=== PATIENT | male | born 1950 | race Caucasian/White ===

== ENCOUNTER 2019-04-13 07:32 | Outpatient (CLI) | payer MEDICARE, OTHER, SELFPAY ==
--- NOTE | ~2019-04-13 | US_ITS ---
EXAMINATION: US aorta [facility] scr[facility] DATE: 04/13/2019 08:15 INDICATION: Abdominal aortic aneurysm screening. TECHNIQUE: Grayscale, color Doppler, and pulsed Doppler images of the aorta and common iliac arteries were obtained. COMPARISON: CT abdomen and pelvis 02/18/2015 FINDINGS: The aorta is normal in caliber. The right common iliac artery is normal in caliber. The left common i liac artery is normal in caliber. IMPRESSION: 1. No abdominal aortic aneurysm. Reviewed, dictated and finalized at location A. [facility]
== END 2019-04-13 07:33 | disposition home or self-care (01) ==
LOC: ANHIMG 07:45
PROVIDERS: PCP Family Medicine; Visit Provider Family Medicine
DX: Z13.6 Encounter for screening for cardiovascular disorders (principal)
CPT/HCPCS: 76706

== ENCOUNTER 2021-07-13 01:37 | Day surgery (SDC) | payer MEDICARE, OTHER, SELFPAY ==
[2021-07-05 14:49] VITALS: BMI 25.8
--- NOTE | 2021-07-05 15:01 | PC.NURSE ---
Report to the Outpatient Waiting Room, entrance under the green pavilion located off [facility], at time _1145 AM on date __07/13/21 . OR Time: ___1:45 PM . - You and your visitor will be asked a series of questions to screen for COVID 19 for your protection. - Only one visitor is allowed at this time. - The patient visitor is requested to leave or wait in car when not with patient. - A mask is required within the hospital. Patients may have clear liquids (water, carbonated beverages, clear teas, apple juice) until 3 hours prior to surgery (1045 AM) with a maximum of 20 ounces. - No food from midnight until time of surgery - Infants may have breast milk until 4 hours before surgery, formula 6 hours prior to surgery. - Children will be allowed to drink immediately following surgery. If applicable, please bring a bottle or sippy cup to assist with drinking. Juice, water, soda, and popsicles are readily available. For infants on formula, please bring formula the day of surgery. Pacifiers are allowed. Take the following medications with a SIP of water the morning of surgery: NONE Medications to discontinue per physician NONE Date to take last dose Please no make-up, nail turkish, hairspray, perfume, deodorant, or body powder the day of surgery. No jewelry (including any body piercings) or valuables the day of surgery, leave them at home. Please take a shower or bath the night before, or the morning of, surgery with an antibacterial soap. Wear comfortable, loose fitting clothing. Children are encouraged to wear pajamas. - Jewelry must be removed prior to entering the operating room. Rings and piercings that are not removed may be cut off. - The hospital will not accept responsibility for valuables. - Please leave all valuables, including medications, at home the day of surgery. If you are going home after surgery, a licensed pick up truck driver must drive you home. - NO public transportation without another adult. - We recommend that an adult stay with you for 24 hours following discharge. - We also recommend that you do not drive, make important decision, drink alcoholic beverages, or take any drugs that were not prescribed by your health care provider for at least 24 hours after your discharge time. For Pediatric surgeries, we recommend two adults accompany the child home (only one inside the building at this time). Follow any additional instructions given to you from your surgeon. If you or anyone in your household have experienced Covid symptoms in the past week, please notify your surgeon or the nurse liaison at the phone number below for possible testing. Telephone instructions given to ____PT and asked if any additional questions and then verbalized understanding. Patient advised to call surgeon office or pre surgery nurse liaison [phone] if any additional questions.
[2021-07-13] VITALS (10 sets, daily range): BP systolic 131–157; BP diastolic 79–93; PULSE 76–88; RESP 10–18; TEMP 36.2–36.6; O2SAT 93–99
--- NOTE | ~2021-07-13 | XR_ITS ---
EXAMINATION: XR retrograde pyelogram BI DATE: 07/13/2021 13:36 INDICATION: Bladder cancer. TECHNIQUE: 130 intraoperative fluoroscopic views of the abdomen and pelvis were obtained. I was not p resent. Fluoroscopy exposure time was 23 seconds. COMPARISON: CT abdomen and pelvis 02/18/2015 FINDINGS: Bilateral retrograde pyelograms are normal. IMPRESSION: 1. Normal bilateral retrograde pyelograms. Reviewed, dictated and finalized at location A.
--- NOTE | 2021-07-13 06:28 | WPDHPUPDATE1 ---
History and Physical Update Update Date/Time: 07/13/21 06:28 History and Physical has been reviewed, including an updated exam of the patient. There are NO changes in the patient's condition. Risks, benefits, and alternatives have been discussed and questions answered. Patient agrees to proceed with procedure.
[2021-07-13] MEDS: LACTATED RINGERS 1,000 ML 30 ML IV CONT (11:10)
--- NOTE | 2021-07-13 13:04 | WPDANESEPPF ---
Anes - Initial Pre Proc Eval Procedure: Operation Date: 07/13/21 12:45 Proposed Procedures p Trans Urethral Resection Bladder Tumor with Gemcitabine Instillation - Rodney Go MD s Cytoscopy with Bilateral Retrograde Pyelogram - Rodney Go MD Date/Time: 07/13/21 13:04 Surgeon: Rodney Go MD Pre Op Diagnosis: Hx of Bladder Ca Patient Data Age: 70 Gender: M Height: 1.83 m Weight: 84.3 kg Last Vital Signs Temp 36.6 C 07/13/21 11:45 Pulse 81 07/13/21 11:45 Resp 18 07/13/21 11:45 BP 150/92 H 07/13/21 11:45 Pulse Ox 99 07/13/21 11:45 Allergies Allergy/AdvReac Type Severity Reaction Status Date / Time omeprazole AdvReac Unknown Increased Verified 07/13/21 11:48 frequency of urination Home Medications Medication Instructions Recorded Confirmed Type diclofenac sodium 75 mg 75 mg PO BID PRN #90 tablet 05/10/21 07/13/21 Rx tablet,delayed release pantoprazole 40 mg tablet,delayed 40 mg PO QAM #90 tablet 05/10/21 07/13/21 Rx release cetirizine-pseudoephedrine 1 tablet PO DAILY 07/05/21 07/13/21 History [Zyrtec-D] Patient hx anesthesia problems: none Family hx anesthesia problems: none Results Review: All pre-operative results and documents have been reviewed as part of the pre-operative evaluation. [facility] Past Medical History Medical History Bladder cancer GERD (gastroesophageal reflux disease) IFG (impaired fasting glucose) Surgical History Surgical History Adams's neuroma Family History Family History Father Family history of diabetes mellitus in first degree relative Other Diabetes mellitus Family history of arthritis Family history of malignant neoplasm Family history of seizure disorder Social History Social History Smoking packs per day: 1 Smoking cigarettes per day: 20.0 Years smoked: 3 Smoking pack-years: 3.00 Smoking status: Former smoker Tobacco type: cigarettes Second hand tobacco smoke exposure: No Smoking end date: 03/11/76 Alcohol intake: current Drinks per week: 9 Substance use: never Substance use type: does not use Living arrangements: with family Gender identity (if verbalized by the patient): Male Sexual Orientation (if Verbalized by the Patient): Straight or Heterosexual Spiritual care concerns: No Anes - Eval Final PreProcedure Day of Procedure 07/13/21 13:04 Patient weight: overweight Heart: regular rate and rhythm Lungs: clear to auscultation Airway: Mallampati scale class II Neurological: alert and oriented Last oral intake: >/= 8 hours ASA classification: III Emergent: no Anesthetic plan: proceed Anesthesia type and monitoring: general LMA and standard monitoring Results Review: All pre-operative results and documents have been reviewed as part of the pre-operative evaluation. Informed Consent: The patient's anesthetic plan and its attendant risks and benefits were discussed with the patient/family/POA. Questions were solicited and answers provided to the satisfaction of the patient/family/POA.
[2021-07-13] MEDS: ceFAZolin 2 GM/D5W 50 ML 2 GM/50 ML BAG IVPB (13:17)
[2021-07-13] MEDS: LIDOCAINE HCL 2% GEL UROJET 10 ML PKG MUCOUS MEM (13:34)
--- NOTE | 2021-07-13 13:49 | W.PM.PROC2 ---
Procedure Note - Detailed Date of Procedure 07/13/21 Pre-op Diagnosis Bladder cancer posterior wall Post-op Diagnosis Same Procedure Performed cystoscopy, bilateral retrograde pyelography and TURBT (small, 2 cm) Surgeon Rodney Go MD Anesthesia General Description of Procedure The patient was brought to the operative suite where he is prepped and draped in a routine sterile fashion while in the dorsal lithotomy position. This is done after the uneventful administration of systemic sedation. 2% Xylocaine jelly is introduced intraurethrally and allowed to stand for an appropriate period of time. A 24F resectoscope sheath was placed in the bladder and the bladder is circumferentially inspected carefully. 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 This area is resected in its entirety with an attempt made to include detrusor muscle for pathological evaluation of invasion. The base and periphery of this resected side is cauterized with a loop and rollerball electrode. this is done with care taken to avoid injury to either ureteral orifice. The bladder is emptied and the resectoscope was removed. An 18 F urethral catheter was placed to drainage. The patient is taken to the recovery room having tolerated this procedure well. Drains Yes Packing No Pathology Yes Complications No immediate complications Condition Stable Disposition PACU
--- NOTE | 2021-07-13 13:51 | W.PM.PROC2 ---
Procedure Note - Detailed Date of Procedure 07/13/21 Pre-op Diagnosis Bladder cancer posterior wall Post-op Diagnosis Same Procedure Performed Gemcitabine installation Surgeon Rodney Go MD Anesthesia None Description of Procedure With the patient in the supine position, a 16F Nance catheter is placed using sterile technique. Using a protective facemask, gown and double layer of gloves Gemcitabine 2gm in 100cc saline is administered through the catheter/into the bladder. The catheter is then plugged. Patient was instructed to lie supine x20min, then to roll both the left and right x20 min. each. Total dwell time will be 60 min., after which the bladder will be drained and catheter removed. Estimated Blood Loss 0 Drains Yes Packing No Pathology None sent Complications No immediate complications Disposition PACU
[2021-07-13] MEDS: SODIUM CHLORIDE 0.9% IV 23.7 ML, GEMCITABINE HCL 1,000 MG BLADDER ×2 (14:00)
[2021-07-13] MEDS: fentaNYL CITRATE INJ (*CRX) 100 MCG/2 ML VIAL 25 MCG IV PUSH ×3 (14:41→14:57)
== END 2021-07-13 16:12 | disposition home or self-care (01) ==
PROVIDERS: PCP Family Medicine; Visit Provider Urology
PROC: 0TBB8ZZ Excision of Bladder, Via Natural or Artificial Opening Endoscopic (ICD-10-PCS; CPT 52234; principal; 2021-07-13 12:45)
PROC: (CPT 52352; 2021-07-13 12:45)
DX: C67.4 Malignant neoplasm of posterior wall of bladder (principal); K21.9 Gastro-esophageal reflux disease without esophagitis; R73.01 Impaired fasting glucose; Z87.891 Personal history of nicotine dependence; F52.32 Male orgasmic disorder; N52.9 Male erectile dysfunction, unspecified; R31.0 Gross hematuria
CPT/HCPCS: 52234; 51720; 74420; 88305; A9270; C1758; C1769; J0690; J1100; J2250; J2405; J2704; J3010; J7120; J9201; Q9966

== ENCOUNTER 2022-03-15 00:22 | Day surgery (SDC) | payer MEDICARE, OTHER, SELFPAY ==
--- NOTE | 2022-02-27 08:14 | PC.NURSE ---
Report to the Outpatient Waiting Room, entrance under the green pavilion located off [facility], at time __1000 on date __03/15/22 . Planned Procedure Time: ___1200 . Time changes happen often and if your time is changed the preop area will call you the afternoon before. - You and your visitor will be asked to self-screen and do not enter if you have any COVID symptoms. - Only one visitor is requested with a max of two and NO children visitors are allowed at this time. - The patient visitor may be requested to leave or wait in car when not with patient due to distancing restrictions. - A mask is optional within the hospital. Patients may have clear liquids (water, carbonated beverages, clear teas, apple juice) until 3 hours prior to surgery (0900 AM) with a maximum of 20 ounces. - No food from midnight until time of surgery - Infants may have breast milk until 4 hours before surgery, infant formula 6 hours prior to surgery. - Children will be allowed to drink immediately following surgery. If applicable, please bring a bottle or sippy cup to assist with drinking. Juice, water, soda, and popsicles are readily available. For infants on formula, please bring formula the day of surgery. Pacifiers are allowed. Take the following medications with a SIP of water the morning of surgery: NONE Medications to discontinue per physician __DICLOFENAC PER DR. OJEDA'S INSTRUCTIONS___ Date to take last dose Please no make-up, nail khmer, hairspray, perfume, deodorant, or body powder the day of surgery. No jewelry (including any body piercings) or valuables the day of surgery, leave them at home. Please take a shower or bath the night before, or the morning of, surgery with an antibacterial soap. Wear comfortable, loose fitting clothing. Children are encouraged to wear pajamas. - Jewelry must be removed prior to entering the operating room. Rings and piercings that are not removed may be cut off. - The hospital will not accept responsibility for valuables. - Please leave all valuables, including medications, at home the day of surgery. If you are going home after surgery, a licensed furniture delivery driver must drive you home. - NO public transportation without another adult if you receive anesthesia. - We recommend that an adult stay with you for 24 hours following discharge. - We also recommend that you do not drive, make important decision, drink alcoholic beverages, or take any drugs that were not prescribed by your health care provider for at least 24 hours after your discharge time. For Pediatric surgeries, we recommend two adults accompany the child home. Follow any additional instructions given to you from your surgeon. If you or anyone in your household have experienced Covid symptoms in the past week, please notify your surgeon or the nurse liaison at the phone number below for possible testing. Telephone instructions given to PT and asked if any additional questions and then verbalized understanding. Patient advised to call surgeon office or pre surgery nurse liaison [phone] if any additional questions.
[2022-02-27 08:15] VITALS: BMI 25.2
--- NOTE | 2022-03-08 14:57 | PM.HPGS ---
History of Present Illness History of Present Illness Consent: Risks, benefits, and alternatives have been discussed and questions answered. Patient agrees to proceed with procedure. Chief complaint: Bladder Cancer Narrative: Glen Capellan is a 71 year old male with a history of urothelial carcinoma dating back to 2014. Recent surveillance cystoscopy showed an area of hyperemic/abnormal mucosa in the posterior and right lateral bladder wall. After discussion of options he has elected proceed with TURBT in gemcitabine installation. He is aware the risk including, but not limited to, damage to the integrity of the bladder wall, recurrent neoplasm, postoperative hematuria. Review of Systems Cardiovascular: Cardiovascular: Denies chest pain, Denies lightheadedness, Denies palpitations and Denies dyspnea Respiratory: Respiratory: Denies dyspnea Gastrointestinal: Gastrointestinal: Denies diarrhea, Denies nausea and Denies vomiting Genitourinary: Genitourinary: Denies hematuria and Denies dysuria Endocrine: Endocrine: Denies palpitations PMFSH Past Medical History Medical History Bladder cancer GERD (gastroesophageal reflux disease) IFG (impaired fasting glucose) Surgical History Surgical History Adams's neuroma Family History Family History Father Family history of diabetes mellitus in first degree relative Other Diabetes mellitus Family history of arthritis Family history of malignant neoplasm Family history of seizure disorder Social History Social History Smoking packs per day: 1 Smoking cigarettes per day: 20.0 Years smoked: 3 Smoking pack-years: 3.00 Smoking status: Former smoker Tobacco type: cigarettes Second hand tobacco smoke exposure: No Smoking end date: 03/11/76 Alcohol intake: current Drinks per week: 9 Substance use: never Substance use type: does not use Living arrangements: with family Gender identity (if verbalized by the patient): Male Sexual Orientation (if Verbalized by the Patient): Straight or Heterosexual Spiritual care concerns: No Meds Home Medications and Allergies Home Medications Medication Instructions Recorded Confirmed Type diclofenac sodium 75 mg 75 mg PO BID PRN pain #90 tabs 05/10/21 02/27/22 Rx tablet,delayed release pantoprazole 40 mg tablet,delayed 40 mg PO QAM #90 tabs 05/10/21 02/27/22 Rx release cetirizine 10 mg tablet 10 mg PO DAILY allergy symptoms 02/20/22 02/27/22 Rx #90 tabs Allergies Allergy/AdvReac Type Severity Reaction Status Date / Time omeprazole AdvReac Unknown Increased Verified 02/27/22 08:10 frequency of urination Exam Const: General: no acute distress Resp: Effort & Inspection: normal respiratory effort GI: Inspection: non-distended GI Palp: No abdominal tenderness and No Guarding due to palpation present (GI) Auscultation: normal bowel sounds Assessment and Plan Assessment and plan (1) Cancer of overlapping sites of bladder: Code(s): C67.8 - Malignant neoplasm of overlapping sites of bladder Status: Acute Assessment and Plan: TURBT followed by gemcitabine installation
--- NOTE | 2022-03-14 13:01 | P.PNAN_ITS ---
Anes - Initial Pre Proc Eval Procedure: Operation Date: 03/15/22 11:30 Proposed Procedures p Trans Urethral Resection Bladder Tumor - Rodney Go MD s Cystoscopy with Gemcitabine Instillation - Rodney Go MD Date/Time: 03/14/22 13:01 Surgeon: Rodney Go MD Pre Op Diagnosis: Bladder Cancer Patient Data Age: 71 Gender: M Height: 1.83 m Weight: 84.3 kg Allergies Allergy/AdvReac Type Severity Reaction Status Date / Time omeprazole AdvReac Unknown Increased Verified 03/15/22 10:02 frequency of urination Home Medications Medication Instructions Recorded Confirmed Type diclofenac sodium 75 mg 75 mg PO BID PRN pain #90 tabs 05/10/21 03/15/22 Rx tablet,delayed release pantoprazole 40 mg tablet,delayed 40 mg PO QAM #90 tabs 05/10/21 03/15/22 Rx release cetirizine 10 mg tablet 10 mg PO DAILY allergy symptoms 02/20/22 03/15/22 Rx #90 tabs Patient hx anesthesia problems: none Family hx anesthesia problems: none Results Review: All pre-operative results and documents have been reviewed as part of the pre- operative evaluation. [facility] Past Medical History Medical History (Updated 03/14/22 @ 13:01 by Cholo Phan MD) Bladder cancer Cancer of overlapping sites of bladder Chronic GERD GERD (gastroesophageal reflux disease) IFG (impaired fasting glucose) Surgical History Surgical History Adams's neuroma Family History Family History Father Family history of diabetes mellitus in first degree relative Other Diabetes mellitus Family history of arthritis Family history of malignant neoplasm Family history of seizure disorder Social History Social History Smoking packs per day: 1 Smoking cigarettes per day: 20.0 Years smoked: 3 Smoking pack-years: 3.00 Smoking status: Former smoker Tobacco type: cigarettes Second hand tobacco smoke exposure: No Smoking end date: 03/11/76 Alcohol intake: current Drinks per week: 9 Substance use: never Substance use type: does not use Living arrangements: with family Gender identity (if verbalized by the patient): Male Sexual Orientation (if Verbalized by the Patient): Straight or Heterosexual Spiritual care concerns: No Anes - Eval Final PreProcedure Day of Procedure 03/14/22 13:01 Patient weight: normal Heart: regular rate and rhythm Lungs: clear to auscultation Airway: Mallampati scale class II Neurological: alert and oriented Last oral intake: >/= 8 hours ASA classification: III Emergent: no Anesthetic plan: proceed Anesthesia type and monitoring: general LMA and standard monitoring Results Review: All pre-operative results and documents have been reviewed as part of the pre- operative evaluation. Informed Consent: The patient's anesthetic plan and its attendant risks and benefits were discussed with the patient/family/POA. Questions were solicited and answers provided to the satisfaction of the patient/family/POA.
[2022-03-15] VITALS (8 sets, daily range): BP systolic 122–146; BP diastolic 80–96; PULSE 73–87; RESP 12–20; TEMP 36.1–37.2; O2SAT 93–99
--- NOTE | 2022-03-15 06:30 | WPDHPUPDATE1 ---
History and Physical Update Update Date/Time: 03/15/22 06:30 History and Physical has been reviewed, including an updated exam of the patient. There are NO changes in the patient's condition. Risks, benefits, and alternatives have been discussed and questions answered. Patient agrees to proceed with procedure.
[2022-03-15] MEDS: LACTATED RINGERS 1,000 ML 30 ML IV CONT (10:16)
[2022-03-15] MEDS: ceFAZolin 2 GM/D5W 50 ML 2 GM/50 ML BAG IVPB (11:06)
[2022-03-15] MEDS: LIDOCAINE HCL 2% GEL UROJET 10 ML PKG MUCOUS MEM (11:26)
--- NOTE | 2022-03-15 11:33 | W.PM.PROC2 ---
Procedure Note - Detailed Date of Procedure 03/15/22 Pre-op Diagnosis Bladder Cancer Post-op Diagnosis Same Procedure Performed TURBT (small, 2 cm) Surgeon Rodney Go MD Anesthesia General Description of Procedure The patient was brought to the operative suite where he is prepped and draped in a routine sterile fashion while in the dorsal lithotomy position. This is done after the uneventful administration of systemic sedation. 2% Xylocaine jelly is introduced intraurethrally and allowed to stand for an appropriate period of time. A 24F resectoscope sheath was placed in the bladder and the bladder is circumferentially inspected carefully. He has 2 areas of probable recurrent urothelial neoplasm. These areas were hyperemic and show mild papillary changes. One of these in the posterior wall above the trigoneand one is in the right posterior lateral bladder wall lateral to the right orifice.. These areas are resected in its entirety with an attempt made to include detrusor muscle for pathological evaluation of invasion. The base and periphery of this resected side is cauterized with a loop and rollerball electrode. The bladder is emptied and the resectoscope was removed. The patient is taken to the recovery room having tolerated this procedure well. Estimated Blood Loss 0 Drains No Packing No Pathology None sent Complications No immediate complications
--- NOTE | 2022-03-15 11:37 | W.PM.PROC2 ---
Procedure Note - Detailed Date of Procedure 03/15/22 Pre-op Diagnosis Bladder Cancer Post-op Diagnosis Same Procedure Performed Gemcitabine installation Surgeon Rodney Go MD Anesthesia None Description of Procedure With the patient in the supine position, a 16F Nance catheter is placed using sterile technique. Using a protective facemask, gown and double layer of gloves Gemcitabine 2gm in 100cc saline is administered through the catheter/into the bladder. The catheter is then plugged. Patient was instructed to lie supine x20min, then to roll both the left and right x20 min. each. Total dwell time will be 60 min., after which the bladder will be drained and catheter removed. Estimated Blood Loss 0 Drains No
[2022-03-15] MEDS: SODIUM CHLORIDE 0.9% IV 23.7 ML, GEMCITABINE HCL 1,000 MG BLADDER ×2 (11:46→11:47)
== END 2022-03-15 13:40 | disposition home or self-care (01) ==
PROVIDERS: PCP Family Medicine; Visit Provider Urology
PROC: 0TBB8ZZ Excision of Bladder, Via Natural or Artificial Opening Endoscopic (ICD-10-PCS; CPT 52234; principal; 2022-03-15 11:30)
PROC: 3E1K78Z Irrigation of Genitourinary Tract using Irrigating Substance, Via Natural or Artificial Opening (ICD-10-PCS; CPT 51700; 2022-03-15 11:30)
DX: C67.8 Malignant neoplasm of overlapping sites of bladder (principal); K21.9 Gastro-esophageal reflux disease without esophagitis; Z87.891 Personal history of nicotine dependence
CPT/HCPCS: 52234; 51720; 88305; A9270; J0690; J1100; J2250; J2405; J2704; J3010; J7120; J9201

== ENCOUNTER 2023-06-06 00:23 | Day surgery (SDC) | payer MEDICARE, OTHER, SELFPAY ==
--- NOTE | 2023-06-03 15:22 | PC.NURSE ---
Report to the Outpatient Waiting Room, entrance under the green pavilion located off [facility], at time __0600 on date __06/06/23 . Planned Procedure Time: _729 . Time changes happen often and if your time is changed the preop area will call you the afternoon before. - You and your visitor will be asked to self-screen and do not enter if you have any COVID symptoms. - A mask is optional within the hospital at this time. Patients may have clear liquids (water, carbonated beverages, clear teas, apple juice) until 3 hours prior to surgery with a maximum of 20 ounces. - No food from midnight until time of surgery - Infants may have breast milk until 4 hours before surgery, infant formula 6 hours prior to surgery. - Children will be allowed to drink immediately following surgery. If applicable, please bring a bottle or sippy cup to assist with drinking. Juice, water, soda, and popsicles are readily available. For infants on formula, please bring formula the day of surgery. Pacifiers are allowed. Take the following medications with a SIP of water the morning of surgery: ___NONE DO NOT STOP ANY OF YOUR OTHER PRESCRIPTION MEDICATIONS PRIOR TO SURGERY ?EXCEPT THE FOLLOWING Medications to discontinue per physician _DICLOFENAC PER DR OJEDA Please no make-up, nail maltese, hairspray, perfume, deodorant, or body powder the day of surgery. No jewelry (including any body piercings) or valuables the day of surgery, leave them at home. Please take a shower or bath the night before, or the morning of, surgery with an antibacterial soap. Wear comfortable, loose fitting clothing. Children are encouraged to wear pajamas. - Jewelry must be removed prior to entering the operating room. Rings and piercings that are not removed may be cut off. - The hospital will not accept responsibility for valuables. - Please leave all valuables, including medications, at home the day of surgery. If you are going home after surgery, a licensed hydraulic lift driver must drive you home. - NO public transportation without another adult if you receive anesthesia. - We recommend that an adult stay with you for 24 hours following discharge. - We also recommend that you do not drive, make important decision, drink alcoholic beverages, or take any drugs that were not prescribed by your health care provider for at least 24 hours after your discharge time. Follow any additional instructions given to you from your surgeon. If you or anyone in your household have experienced Covid symptoms in the past week, please notify your surgeon or the nurse liaison at the phone number below for possible testing. Telephone instructions given to __PATIENT and asked if any additional questions and then verbalized understanding. Patient advised to call surgeon office or pre surgery nurse liaison [phone] if any additional questions.
[2023-06-03 15:29] VITALS: BMI 25.7
[2023-06-06] VITALS (9 sets, daily range): BP systolic 112–139; BP diastolic 75–88; PULSE 71–85; RESP 12–18; TEMP 36.4–36.8; O2SAT 94–100
--- NOTE | 2023-06-06 05:59 | WPDHPUPDATE1 ---
History and Physical Update Update Date/Time: 06/06/23 05:59 History and Physical has been reviewed, including an updated exam of the patient. There are NO changes in the patient's condition. Risks, benefits, and alternatives have been discussed and questions answered. Patient agrees to proceed with procedure.
[2023-06-06] MEDS: LACTATED RINGERS 1,000 ML 30 ML IV CONT (06:17)
--- NOTE | 2023-06-06 07:12 | WPDANESEPPF ---
Anes - Initial Pre Proc Eval Procedure: Operation Date: 06/06/23 07:30 Proposed Procedures p Trans Urethral Resection Bladder Tumor - Rodney Go MD s Flexible Cystoscopy - Rodney Go MD Date/Time: 06/06/23 07:12 Surgeon: Rodney Go MD Pre Op Diagnosis: Bladder Tumor Patient Data Age: 72 Gender: M Height: 1.83 m Weight: 87.4 kg Last Vital Signs Temp 97.6 F 06/06/23 06:01 Pulse 85 06/06/23 06:01 Resp 18 06/06/23 06:01 BP 112/75 06/06/23 06:01 Pulse Ox 95 06/06/23 06:01 O2 Del Method Room Air 06/06/23 06:01 Allergies Allergy/AdvReac Type Severity Reaction Status Date / Time omeprazole AdvReac Unknown Increased Verified 06/06/23 06:20 frequency of urination Home Medications Medication Instructions Recorded Confirmed Type diclofenac sodium 75 mg 75 mg PO BID PRN pain #90 tabs 05/20/23 06/06/23 Rx tablet,delayed release finasteride 5 mg tablet 5 mg PO DAILY #90 tabs 05/20/23 06/06/23 Rx losartan 50 mg tablet 50 mg PO DAILY #90 tabs 05/20/23 06/06/23 Rx pantoprazole 40 mg tablet,delayed 40 mg PO QAM #90 tabs 05/20/23 06/06/23 Rx release cetirizine 10 mg tablet 10 mg PO PRN PRN allergy symptoms 06/03/23 06/06/23 History scopolamine base 1 mg over 3 days 1 patch transdermal Q3D PRN SHIP 06/06/23 06/06/23 History transdermal patch TRAVEL/NAUSEA PREVENTION Patient hx anesthesia problems: none Family hx anesthesia problems: none Results Review: All pre-operative results and documents have been reviewed as part of the pre-operative evaluation. [facility] Past Medical History Medical History Bladder cancer Cancer of overlapping sites of bladder Chronic GERD GERD (gastroesophageal reflux disease) IFG (impaired fasting glucose) Surgical History Surgical History Adams's neuroma Family History Family History Father Family history of diabetes mellitus in first degree relative Other Diabetes mellitus Family history of arthritis Family history of malignant neoplasm Family history of seizure disorder Social History Social History (Updated 05/20/23 @ 13:06 by Marybeth Ceja) Social History: Smoking packs per day: 1 Smoking cigarettes per day: 20.0 Years smoked: 3 Smoking pack-years: 3.00 Smoking status: Former smoker Tobacco type: cigarettes Second hand tobacco smoke exposure: No Smoking end date: 03/11/76 Alcohol intake: current Drinks per week: 9 Substance use: never Substance use type: does not use Do You Feel Safe in your Home?: Yes Lack of Transportation: No Lack of Food: Never True Current Housing: I Have Housing Concerned About Future Housing: No Difficulty Paying Gas/Electric Bills: No Difficulty Paying for Meds: No Currently Unemployed: YES Education: Don't Know Difficulty w/ Childcare or Family Care: No Living arrangements: with family Occupation/Education: retired Gender identity (if verbalized by the patient): Male Sexual Orientation (if Verbalized by the Patient): Straight or Heterosexual Spiritual care concerns: No Anes - Eval Final PreProcedure Day of Procedure 06/06/23 07:12 Patient weight: normal Heart: regular rate and rhythm Lungs: clear to auscultation Airway: Mallampati scale class II Neurological: alert and oriented Last oral intake: >/= 8 hours ASA classification: III Emergent: no Anesthetic plan: proceed Anesthesia type and monitoring: general LMA and standard monitoring Results Review: All pre-operative results and documents have been reviewed as part of the pre-operative evaluation. Informed Consent: The patient's anesthetic plan and its attendant risks and benefits were discussed with the patient/family/POA. Questions were solicited and answers provided to the
[2023-06-06] MEDS: ceFAZolin 2 GM/D5W 50 ML 2 GM/50 ML BAG IVPB (07:24)
[2023-06-06] MEDS: LIDOCAINE HCL 2% GEL UROJET 10 ML PKG MUCOUS MEM (07:42)
--- NOTE | 2023-06-06 07:54 | W.PM.PROC2 ---
Procedure Note - Detailed Date of Procedure 06/06/23 Pre-op Diagnosis Bladder Tumor Post-op Diagnosis Same Procedure Performed TURBT (small, 1 cm) Surgeon Rodney Go MD Anesthesia General Description of Procedure Patient brought to the operative suite he was prepped and draped in routine sterile fashion while in dorsal lithotomy position after the uneventful induction of a general LMA anesthetic. 2% xylocaine jelly was introduced intraurethrally and systemic sedation is administered per the anesthesia department. 24F resectoscope was placed in his bladder. There was no urethral stricture and early lateral lobe enlargement of the prostate without a median lobe. Bladder shows very slight trabeculation. There was 1 small papillary lesion in his right posterior lateral bladder wall measuring approximately 1 cm. This is resected with a loop electrode with an attempt made to include detrusor muscle for pathological evaluation of invasion. The base and periphery was extensively cauterized. The remainder of the bladder mucosa is without suspicious hyperemia her other sites of neoplastic change. He has a single orthotopic ureteral orifice bilaterally. Drains No Packing No Pathology Yes Complications No immediate complications Condition Stable
--- NOTE | 2023-06-06 08:01 | W.PM.PROC2 ---
Procedure Note - Detailed Date of Procedure 06/06/23 Pre-op Diagnosis Bladder Tumor Post-op Diagnosis Same Procedure Performed Gemcitabine installation Surgeon Rodney Go MD Anesthesia None Description of Procedure With the patient in the supine position, a 16F Nance catheter is placed using sterile technique. Using a protective facemask, gown and double layer of gloves Gemcitabine 2gm in 100cc saline is administered through the catheter/into the bladder. The catheter is then plugged. Patient was instructed to lie supine x20min, then to roll both the left and right x20 min. each. Total dwell time will be 60 min., after which the bladder will be drained and catheter removed.
[2023-06-06] MEDS: SODIUM CHLORIDE 0.9% IV 23.7 ML, GEMCITABINE HCL 1,000 MG BLADDER ×2 (08:04→08:05)
[2023-06-06] MEDS: SODIUM CHLORIDE 0.9% IV 50 ML BAG 150 ML IRRIGATION (09:10)
--- NOTE | 2023-06-06 09:15 | SUR.PHASEI ---
0915 - barron catheter removed. pt tracy alvarez..
== END 2023-06-06 09:50 | disposition home or self-care (01) ==
PROVIDERS: PCP Family Medicine; Visit Provider Urology
PROC: 0TBB8ZZ Excision of Bladder, Via Natural or Artificial Opening Endoscopic (ICD-10-PCS; CPT 52234; principal; 2023-06-06 07:30)
DX: C67.2 Malignant neoplasm of lateral wall of bladder (principal); F52.32 Male orgasmic disorder; Z87.891 Personal history of nicotine dependence; Z80.9 Family history of malignant neoplasm, unspecified; Z82.49 Family history of ischemic heart disease and other diseases of the circulatory system
CPT/HCPCS: 52234; 51720; 88305; J0690; J1100; J2405; J2704; J3010; J7030; J7120; J9201

== ENCOUNTER 2024-06-22 10:22 | Outpatient (CLI) | payer MEDICARE, OTHER, SELFPAY ==
--- NOTE | 2024-06-22 10:30 | ECG_ITS ---
Test Date: 2024-06-22 10:40:02 Measurements Intervals [place] Rate: 68 P: 22 MS: 196 QRS: -23 QRSD: 109 T: 5 QT: 362 QTc: 387 Interpretive Statements SINUS RHYTHM INCOMPLETE RIGHT BUNDLE BRANCH BLOCK DELAYED PRECORDIAL R/S TRANSITION BORDERLINE T WAVE ABNORMALITY- INFERIOR LEADS BASELINE ARTIFACT- I, III, AVR, AVL, AVF, V2 BORDERLINE ECG No previous ECG available for comparison Electronically Signed On 06-22-2024 11:07:08 CDT by Ricardo Ho D.O.
--- OUTSIDE RECORDS SUMMARY | 2024-06-22 11:49 | XMS_ITS | Continuity of Care Document ---
Author Name [facility] Organization [facility] Care Team Providers Care Certified Medical Transcriptionist Name Role Phone [facility] Unavailable Unavailable Medications Combined list of outpatient medications from Department of Defense and Veterans Affairs facilities.Medications provided include 1) outpatient medications from the last 15 months, and 2) patient-reported medications. Medication Details Route Status Patient Instructions Prescription Expires Prescription Number Last Dispense Date Ordering Provider Order Date Order Qty Source cetirizine 10 mg tablet See Instruct ions, # 90 EA, 3 total refill(s ), Acute Complet ed 05/14/2023 4 2023 90.0 Ambulat ory Pharmac y diclofenac sodium EC 75 mg tablet 75 mg, Oral, BID, # 180 EA, 3 total refill(s ), Hard Stop Oral (given by mouth) Ordered 04/30/2025 5 2024 180.0 Ambulat ory Pharmac y diclofenac sodium EC 75 mg tablet 75 mg, Oral, BID, # 90 EA, 3 total refill(s ), Hard Stop Oral (given by mouth) Discont inued 11/28/2023 4 2023 90.0 Ambulat ory Pharmac y diclofenac sodium EC 75 mg tablet See Instruct ions, # 90 EA, 3 total refill(s ), Acute Complet ed 05/14/2023 4 2023 90.0 Ambulat ory Pharmac y diclofenac sodium EC 75 mg tablet 75 mg, Oral, BID, # 180 EA, 3 total refill(s ), Hard Stop Oral (given by mouth) Discont inued 04/30/2024 4 2024 180.0 Ambulat ory Pharmac y finasteride 5 mg tablet 5 mg, Oral, Daily, # 90 EA, 3 total refill(s ), Hard Stop Oral (given by mouth) Ordered 04/30/2025 5 2024 90.0 Ambulat ory Pharmac y finasteride 5 mg tablet 5 mg, Oral, Daily, # 90 EA, 3 total refill(s ), Hard Stop Oral (given by mouth) Discont inued 04/30/2024 4 2024 90.0 Ambulat ory Pharmac y losartan 25 mg tablet See dose instruct ions in comments , # 90 EA, 1 total refill(s ), Acute Discont inued 05/21/2023 3 2023 90.0 Ambulat ory Pharmac y losartan 50 mg tablet 50 mg, Oral, Daily, # 90 EA, 3 total refill(s ), Hard Stop Oral (given by mouth) Ordered 04/30/2025 5 2024 90.0 Ambulat ory Pharmac y losartan 50 mg tablet 50 mg, Oral, Daily, # 90 EA, 3 total refill(s ), Hard Stop Oral (given by mouth) Discont inued 04/30/2024 4 2024 90.0 Ambulat ory Pharmac y pantoprazol e EC 40 mg tablet See Instruct ions, # 90 EA, 3 total refill(s ), Acute Complet ed 05/14/2023 4 2023 90.0 Ambulat ory Pharmac y pantoprazol e EC 40 mg tablet 40 mg, Oral, every morning, # 90 EA, 3 total refill(s ), Hard Stop Oral (given by mouth) Ordered 04/30/2025 5 2024 90.0 Ambulat ory Pharmac y pantoprazol e EC 40 mg tablet 40 mg, Oral, every morning, # 90 EA, 3 total refill(s ), Hard Stop Oral (given by mouth) Discont inued 04/30/2024 4 2024 90.0 Ambulat ory Pharmac y Immunizations Combined list of available immunizations from the Department of Defense and Veterans Affairs facilities. Immunization Series Date Given Administered By Site Reaction Lot Number CVX Code Drug Melter Supervisor [employer] Status Comments Source influenza, injectable, quadrivalent 2021 TRANSCR IBED 158 Unknown complet ed influenza , injectabl e, quadrival ent 11/15/21 Given Ambulat ory Pharmac y COVID Vaccine Pfizer 2020 TRANSCR IBED 208 PFIZER complet ed COVID Vaccine Pfizer 12/05/20 Given Ambulat ory Pharmac y COVID Vaccine Pfizer 2020 TRANSCR IBED 208 PFIZER complet ed COVID Vaccine Pfizer 05/24/20 Given Ambulat ory Pharmac y COVID Vaccine Pfizer 2020 TRANSCR IBED 208 PFIZER complet ed COVID Vaccine Pfizer 05/03/20 Given Ambulat ory Pharmac y influenza, injectable, quadrivalent- pf 2018 150 Seqirus complet ed influenza , injectabl e, quadrival ent-pf 12/16/18 Given Ambulat ory Pharmac y typhoid Vi capsular polysaccharid e vac 2018 zzLef t Arm [id number] 101 sanofi pasteur complet ed typhoid Vi capsular polysacch aride vac 09/29/18 Given Ambulat ory Pharmac y poliovirus vaccine, inactivated 2018 zzRig Arm [id number] 10 sanofi pasteur complet ed polioviru s vaccine, inactivat ed 09/29/18 Given Ambulat ory Pharmac y rabies vaccine, IM 2018 zzLef t Arm [id number] 175 sanofi pasteur complet ed rabies vaccine, IM 06/06/18 Given Ambulat ory Pharmac y rabies vaccine, IM 2018 zzLef t Arm [id number] 175 sanofi pasteur complet ed rabies vaccine, IM 05/23/18 Given Ambulat ory Pharmac y Ivorian Encephalitis IM 2018 zzRig Arm [id number] 134 Valneva complet ed Ivorian Encephali tis IM 05/05/18 Given Ambulat ory Pharmac y typhoid Vi capsular polysaccharid e vac 2018 zzRig ht Arm [id number] 101 sanofi pasteur complet ed typhoid Vi capsular polysacch aride vac 05/05/18 Given Ambulat ory Pharmac y rabies vaccine, IM 2018 zzLef t Arm [id number] 175 sanofi pasteur complet ed rabies vaccine, IM 05/05/18 Given Ambulat ory Pharmac y tetanus-dipht h toxoids (Td) adult/adol 2018 zzLef t Arm [id number] 09 sanofi pasteur complet ed tetanus-d iphth toxoids (Td) adult/ado l 04/30/18 Given Ambulat ory Pharmac y pneumococcal polysaccharid e, 23 valent 2018 zzRig ht Arm [id number] Merck & Company Inc complet ed pneumococ prasanna polysacch aride, 23 valent 04/30/18 Given Ambulat ory Pharmac y hepatitis B adult vaccine 2018 zzLef t Arm [id number] 43 GlaxoSmithKli ne complet ed hepatitis B adult vaccine 04/30/18 Given Ambulat ory Pharmac y influenza, seasonal,high dose-pf 2017 135 sanofi pasteur complet ed influenza , seasonal, high dose-pf 11/15/17 Given Ambulat ory Pharmac y Ivorian Encephalitis IM 2015 zzRig ht Arm [id number] 134 Valneva complet ed Ivorian Encephali tis IM 01/12/16 Given Ambulat ory Pharmac y hepatitis B adult vaccine 2015 zzLef t Arm [id number] 43 Merck & Company Inc complet ed hepatitis B adult vaccine 01/12/16 Given Ambulat ory Pharmac y Ivorian Encephalitis IM 2015 zzRig ht Arm [id number] 134 Valneva complet ed Ivorian Encephali tis IM 12/08/15 Given Ambulat ory Pharmac y influenza, injectable, quadrivalent 2015 zzLef t Arm [id number] [employer] complet ed influenza , injectabl e, quadrival ent 12/08/15 Given Ambulat ory Pharmac y typhoid Vi capsular polysaccharid e vac 2015 zzRig ht Arm [id number] sanofi pasteur complet ed typhoid Vi capsular polysacch aride vac 12/08/15 Given Ambulat ory Pharmac y hepatitis B adult vaccine 2015 zzLef t Arm [id number] 43 GlaxoSmithKli ne complet ed hepatitis B adult vaccine 12/08/15 Given Ambulat ory Pharmac y influenza, injectable, quadrivalent- pf 2014 150 sanofi pasteur complet ed influenza , injectabl e, quadrival ent-pf 12/10/14 Given Ambulat ory Pharmac y hepatitis A adult vaccine 2012 zzLef t Arm [id number] 52 GlaxoSmithKli ne complet ed hepatitis A adult vaccine 01/02/13 Given Ambulat ory Pharmac y zoster vaccine live 2012 [facility] Arm [id number] Merck & Company Inc complet ed zoster vaccine live 01/02/13 Given Ambulat ory Pharmac y pneumococcal 13-valent conjugate (PCV13) 2012 [id number] complet ed pneumococ prasanna 13-valent conjugate (PCV13) 04/03/12 Given Ambulat ory Pharmac y influenza, seasonal, injectable 2011 141 Novartis Pharmaceutica ls complet ed influenza , seasonal, injectabl e 11/29/11 Given Ambulat ory Pharmac y influenza, seasonal, injectable 2010 141 Novartis Pharmaceutica ls complet ed influenza , seasonal, injectabl e 12/22/10 Given Ambulat ory Pharmac y influenza virus vaccine, live 2010 TRANSCR IBED 111 Novartis Pharmaceutica ls complet ed influenza virus vaccine, live 12/22/10 Given Ambulat ory Pharmac y Novel influenza-H1N 1-09, [id number] Novartis Pharmaceutica ls complet ed Novel influenza -[id number], injectabl e 03/31/09 Given Ambulat ory Pharmac y influenza virus vaccine,split 2008 zzLef t Arm [id number] 15 sanofi pasteur complet ed influenza virus vaccine,s plit 02/02/09 Given Ambulat ory Pharmac [facility] adult [id number] 52 GlaxoSmithKli ne complet ed hepatitis A adult vaccine 11/14/07 Given Ambulat ory Pharmac y typhoid Vi capsular polysaccharid e vac [id number] sanofi pasteur complet ed typhoid Vi capsular polysacch aride vac 11/14/07 Given Ambulat ory Pharmac y tetanus, diphtheria, acellular pertu is [facility] [id number] 115 sanofi pasteur complet ed tetanus, diphtheri a, acellular pertussis 11/14/07 Given Ambulat ory Pharmac y influenza virus vaccine,split 2005 zzLef t Arm [id number] 15 GlaxoSmithKli ne complet ed influenza virus vaccine,s plit 02/22/06 Given Ambulat ory Pharmac y influenza virus vaccine,split 2004 zzLef t Arm [id number] 15 sanofi pasteur complet ed influenza virus vaccine,s plit 02/08/05 Given Ambulat ory Pharmac y Procedures Combined list of: 1) Procedures from Department of Veterans Affairs facilities going back up to thelast 18 months, not all [place] non-surgical procedures are included; 2) All procedures from the Department of Defense facilities. Procedure Procedure Type Code Date Perfomer Comments Sourc e No data available for this section Ambulatory P harmacy Assessment and Plan Combined list of future care activities from Department of Defense and Veterans Affairs facilities (e.g., assessment and plan notes, appointments, orders, and referrals). Additional future care activities may be listed in the Plan of Care section. Result Assessment and Plan Date Source Assessment and Plan No data available for this section 06/22/2024 Ambulatory Pharmacy Functional Status Combined list of recent functional and cognitive assessments recorded at Department of Defense and Veterans Affairs ([place] Functional [place] Measurement (FIM) Scale: 1 = Total Assistance (Subject = 0% +), 2 = Maximal Assistance (Subject = 25% +), 3 = Moderate Assistance (Subject = 50% +), 4 = Minimal Assistance (Subject = 75% +), 5 = Supervision, 6 = Modified [place] (Device), 7 = Complete [place] (Timely, Safely). Assessment Date/Time Source Assessment Type Assessment Skill Assessment Score Assessment Details No data available for this section
--- OUTSIDE RECORDS SUMMARY | 2024-06-22 11:50 | XMS_ITS | CONTINUITY OF CARE DOCUMENT ---
Author Name tevin abarca Address Unknown Organization [facility] Address [id number] [place] [address] [address] [place] [address] Phone [phone] Care Team Providers Care Certified Tower Climber Name Role Phone Jayant PRETTY, Alyse Unavailable [phone] BRIDGET ANGLIN MD Unavailable [phone] BRIDGET ANGLIN MD Unavailable PROBLEMS Condition Status Date Provider Notes Hypertriglyceridemia active Alyse Saba MD Palpitations active Alyse Saba MD GERD active Alyse Saba MD ENCOUNTERS Date Type Provider Location Encounter Diag nosis 9 - 9 In-person encounter Office Visit Alyse Saba MD [facility] GERDPalpitationsHypertriglyceridemia VITAL SIGNS Date Observation Value Provider Body Mass Index (Ratio) 26.44 kg/m2 Tyler Saba MD blood pressure, cuff size large Husam Marques blood pressure, diastolic 84 mm[Hg] Husam Marques blood pressure, systolic 138 mm[Hg] Anthony Marques oxygen saturation, oximetry 96 % Laverne Marques respiratory rate E&M 18 /min Laverne glasgow pulse rate 88 /min Laevrne Castañeda lder weight E&M 195 [lb_av] Laverne Castañeda lder height E&M 72 [in_i] Laverne Lynnnfe lder ALLERGIES No Known Drug Allergies HISTORY OF MEDICATION USE Medication Status Instructions Dates Provider Indications Com ments TYLENOL CAPSULE active as needed Lavernecam Marques MULTIVITAMINS ORAL CAPSULE active ONE TAB. DAILY Laverne Marques PANTOPRAZOLE SODIUM TABLET DELAYED RELEASE active take one pill a day Laverne Marques SOCIAL HISTORY Date Observation Value Provider social history E&M S moking History: Landen wilkinson is a former smoker. Alyse Saba MD social history reviewed E&M revi ewed - no changes required Alyse Saba MD number of grandchildren Alyse Saba MD T raffy Saba MD number of years as a smoker 2 a Lavernecam Marques smoking history, tot al pack/day 1 ppd Laverne Marques smoking, year quit 1971 [facility]ne [facility] cigarette use yes Laverne Vueric [facility] smoking status Former smoker Laverne Shane riley FAMILY HISTORY Family Member Condition Father Negative FH of Coron cabrera Artery Disease Mother Negative FH of Coron cabrera Artery Disease INSURANCE PROVIDERS Payer name Policy type / Coverage type [place] red green party ID [id number] [id number] [place] Medicare [id number] ADVANCE DIRECTIVES Name Date DISCUSSED - NO DECISION MADE TREATMENT PLAN Date Name Performer Cardiology New Patient Alyse terry MD Cardiology New Patient Alyse terry MD Cardiology New Patient Alyse terry MD HISTORY OF PROCEDURES Procedure Date Procedure Name Provider Procedure Notes S tatus EKG Alyse Saba MD completed
== END 2024-06-22 10:23 | disposition home or self-care (01) ==
PROVIDERS: PCP Family Medicine; Visit Provider Urology
DX: R94.31 Abnormal electrocardiogram [ECG] [EKG] (principal); I10 Essential (primary) hypertension
CPT/HCPCS: 93005

== ENCOUNTER 2024-06-25 00:21 | Day surgery (SDC) | payer MEDICARE, OTHER, SELFPAY ==
--- NOTE | 2024-06-18 13:49 | PC.NURSE ---
Report to the Outpatient Waiting Room, entrance under the green pavilion located off [facility], at time _11 AM on date __06/25/24 . Planned Procedure Time: __1 PM .? Time changes happen often and if your time is changed the preop area will call you the afternoon before. - You and your visitor will be asked to self-screen and do not enter if you have any COVID symptoms. Please call surgeon if you need to reschedule. - A mask is optional within the hospital at this time. Patients may have clear liquids (water, carbonated beverages, clear teas, apple juice) until 3 hours prior to surgery ( 10AM) with a maximum of 20 ounces. - No food from midnight until time of surgery and no smoking, or chewing tobacco (or any form of nicotine). No chewing gum, candy or mints. - Take only the following medications with a SIP of water on the morning of surgery: NONE DO NOT STOP ANY OF YOUR OTHER PRESCRIPTION MEDICATIONS PRIOR TO SURGERY EXCEPT THE FOLLOWING Hold all vitamins and supplements for 3 days per anesthesiologist. Medications to discontinue per physician DICLOFENAC PER DR OJEDA Date to take last dose Please no make-up, nail kazakh, hairspray, perfume, deodorant, or body powder the day of surgery.? No jewelry (including any body piercings) or valuables the day of surgery, leave them at home.? Please take a shower or bath the night before, or the morning of, surgery with an antibacterial soap.? Wear comfortable, loose fitting clothing.? Children are encouraged to wear pajamas. - Jewelry must be removed prior to entering the operating room.? Rings and piercings that are not removed may be cut off. - The hospital will not accept responsibility for valuables.? - Please leave all valuables, including medications, at home the day of surgery. If you are going home after surgery, a licensed passenger coach driver must drive you home.? - NO public transportation without another adult if you receive anesthesia. - We recommend that an adult stay with you for 24 hours following discharge. - We also recommend that you do not drive, make important decision, drink alcoholic beverages, or take any drugs that were not prescribed by your health care provider for at least 24 hours after your discharge time. For Pediatric surgeries, we recommend two adults accompany the child home. Follow any additional instructions given to you from your surgeon. Telephone instructions given to _PATIENT and asked if any additional questions and then verbalized understanding. Patient advised to call surgeon office or pre surgery nurse liaison [phone] if any additional questions.
[2024-06-18 13:59] VITALS: BMI 25.7
[2024-06-25] VITALS (9 sets, daily range): BP systolic 131–152; BP diastolic 71–94; PULSE 73–82; RESP 14–17; TEMP 36.4–36.6; O2SAT 94–99; BMI 25.6
--- OUTSIDE RECORDS SUMMARY | 2024-06-25 00:24 | XMS_ITS | CONTINUITY OF CARE DOCUMENT ---
Author Name tevin abarca Address Unknown Organization [facility] Address [id number] [place] [address] [address] [place] [address] Phone [phone] Care Team Providers Care Vibratory Pile Driver Name Role Phone Jayant PRETTY, Alyse Unavailable [phone] BRIDGET ANGLIN MD Unavailable BRIDGET ANGLIN MD Unavailable PROBLEMS Condition Status Date Provider Notes GERD active Alyse Saba MD Palpitations active Alyse Saba MD Hypertriglyceridemia active Alyse Saba MD ENCOUNTERS Date Type Provider Location Encounter Diag nosis 9 - 9 In-person encounter Office Visit Alyse Saba MD [place] [facility] GERDPalpitationsHypertriglyceridemia VITAL SIGNS Date Observation Value Provider Body Mass Index (Ratio) 26.44 kg/m2 Tyler Saba MD blood pressure, cuff size large Husam Marques blood pressure, diastolic 84 mm[Hg] Husam Marques blood pressure, systolic 138 mm[Hg] Anthony Marques oxygen saturation, oximetry 96 % Laverne Marques respiratory rate E&M 18 /min Laverne glasgow pulse rate 88 /min Laverne Castañeda lder weight E&M 195 [lb_av] Laverne [...] Marques smoking, year quit 1971 [facility] cigarette use yes Laverne Vueric [facility] smoking status Former smoker Laverne Shane riley FAMILY HISTORY Family Member Condition Father Negative FH of Coron cabrera Artery Disease Mother Negative FH of Coron cabrera Artery Disease INSURANCE PROVIDERS Payer name Policy type / Coverage type [place] red republic[place] ID [id number] [id number] [place] Medicare [id number] ADVANCE DIRECTIVES Name Date DISCUSSED - NO DECISION MADE TREATMENT PLAN Date Name Performer Cardiology New Patient Alyse terry MD Cardiology New Patient Alyse terry MD Cardiology New Patient Alyse terry MD HISTORY OF PROCEDURES Procedure Date Procedure Name Provider Procedure Notes S tatus EKG Alyse Saba MD completed
--- OUTSIDE RECORDS SUMMARY | 2024-06-25 00:24 | XMS_ITS | Continuity of Care Document ---
Author Name [facility] Organization [facility] Care Team Providers Care Lead Database Developer Name Role Phone [facility] Unavailable Unavailable Medications Combined list of outpatient [...] Site Reaction Lot Number CVX Code Drug Loop Puller Status Comments Source influenza, injectable, quadrivalent 2021 [...] polysaccharid e vac 2018 zzLef t Arm [id number] 101 sanofi pasteur complet ed typhoid Vi capsular polysacch aride vac 09/29/18 Given Ambulat ory Pharmac y poliovirus vaccine, inactivated 2018 zzRig Arm [id number] 10 sanofi pasteur complet ed polioviru s vaccine, inactivat ed 09/29/18 Given Ambulat ory Pharmac y rabies vaccine, IM 2018 zzLef t Arm [id number] 175 sanofi pasteur complet ed rabies vaccine, IM 06/06/18 Given Ambulat ory Pharmac y rabies vaccine, IM 2018 zzLef t Arm [id number] 175 sanofi pasteur complet ed rabies vaccine, IM 05/23/18 Given Ambulat ory Pharmac y [place] Encephalitis IM 2018 zzRig Arm [id number] 134 Valneva complet ed [place] Encephali tis IM 05/05/18 Given Ambulat ory Pharmac y typhoid Vi capsular polysaccharid e vac 2018 zzRig ht Arm [id number] 101 sanofi pasteur complet ed typhoid Vi capsular polysacch aride vac 05/05/18 Given Ambulat ory Pharmac y rabies vaccine, IM 2018 zzLef t Arm [id number] 175 sanofi pasteur complet ed rabies vaccine, IM 05/05/18 Given Ambulat ory Pharmac y tetanus-dipht h toxoids (Td) adult/adol 2018 zzLef t Arm [id number] 09 sanofi pasteur complet ed tetanus-d iphth toxoids (Td) adult/ado l 04/30/18 Given Ambulat ory Pharmac y pneumococcal polysaccharid e, 23 valent 2018 zzRig ht Arm [id number] 33 Merck [employer] Inc complet ed pneumococ prasanna polysacch aride, 23 valent 04/30/18 Given Ambulat ory Pharmac y hepatitis B adult vaccine 2018 zzLef t Arm [id number] 43 GlaxoSmithKli ne complet ed hepatitis B adult vaccine 04/30/18 Given Ambulat ory Pharmac y influenza, seasonal,high dose-pf 2017 135 sanofi pasteur complet ed influenza , seasonal, high dose-pf 11/15/17 Given Ambulat ory Pharmac y [place] Encephalitis IM 2015 zzRig ht Arm [id number] 134 Valneva complet ed [place] Encephali tis IM 01/12/16 Given Ambulat ory Pharmac y hepatitis B adult vaccine 2015 zzLef t Arm [id number] 43 [employer]ck [employer] Inc complet ed hepatitis B adult vaccine 01/12/16 Given Ambulat ory Pharmac y [place] Encephalitis IM 2015 zzRig ht Arm [id number] 134 Valneva complet ed [place] Encephali tis IM 12/08/15 Given Ambulat ory [...] ory Pharmac y zoster vaccine live 2012 [facility] Arm [id number] Merck & Company Inc complet ed zoster vaccine live 01/02/13 Given Ambulat ory Pharmac y pneumococcal 13-valent conjugate (PCV13) 2012 [id number] complet ed pneumococ prasanna 13-valent conjugate [...] Pharmac y Novel influenza-H1N 1-09, injectable 2009 [facility] Arm [id number] Novartis Pharmaceutica ls complet ed Novel influenza -[id number], injectabl e 03/31/09 Given Ambulat ory Pharmac y influenza virus vaccine,split 2008 zzLef t Arm [id number] 15 sanofi pasteur complet ed influenza virus vaccine,s plit 02/02/09 Given Ambulat ory Pharmac y hepatitis A adult vaccine 2007 [facility] [id number] 52 GlaxoSmithKli ne complet ed hepatitis A adult vaccine 11/14/07 Given Ambulat ory Pharmac y typhoid Vi capsular polysaccharid e vac 2007 [facility] t Arm [id number] sanofi pasteur complet ed typhoid Vi capsular polysacch aride vac 11/14/07 Given Ambulat ory Pharmac y tetanus, diphtheria, acellular pertu is 2007 [facility] [id number] 115 sanofi pasteur complet ed tetanus, diphtheri a, acellular pertussis 11/14/07 Given Ambulat ory Pharmac y influenza virus vaccine,split 2005 zzLef t Arm [id number] 15 GlaxoSmithKli ne complet ed influenza virus vaccine,s plit 02/22/06 Given Ambulat ory Pharmac y influenza virus vaccine,split 2004 zzLef t Arm [id number] 15 sanofi pasteur complet ed influenza virus vaccine,s plit 02/08/05 Given Ambulat ory Pharmac y Procedures Combined list of: 1) Procedures from [facility] facilities going back up to thelast 18 months, not all [place] non-surgical procedures are included; 2) All procedures [...] Plan No data available for this section 06/25/2024 Ambulatory Pharmacy Functional Status Combined list of recent functional and cognitive assessments recorded at [facility] [place] Functional [place] Measurement (FIM) Scale: 1 = Total Assistance (Subject = 0% +), 2 = Maximal Assistance (Subject = 25% +), 3 = Moderate Assistance (Subject = 50% +), 4 = Minimal Assistance (Subject = 75% +), 5 = Supervision, 6 = Modified [place] (Device), 7 = Complete [place] (Timely, Safely). Assessment Date/Time Source Assessment Type Assessment Skill Assessment Score Assessment Details No data available for this section
--- NOTE | 2024-06-25 06:13 | WPDHPUPDATE1 ---
History and Physical Update Update Date/Time: 06/25/24 06:13 History and Physical has been reviewed, including an updated exam of the patient. There are NO changes in the patient's condition. Risks, benefits, and alternatives have been discussed and questions answered. Patient agrees to proceed with procedure.
[2024-06-25] MEDS: LACTATED RINGERS 1,000 ML 30 ML IV CONT ×2 (11:35→14:21)
--- NOTE | 2024-06-25 13:02 | WPDANESEPPF ---
Anes - Initial Pre Proc Eval Procedure: Operation Date: 06/25/24 13:00 Proposed Procedures p Trans Urethral Resection Bladder Tumor with Gemcitabine Instillation - Rodney Go MD Date/Time: 06/25/24 13:02 Surgeon: Rodney Go MD Pre Op Diagnosis: bladder CA Patient Data Age: 73 Gender: M Height: 1.83 m Weight: 85.75 kg Last Vital Signs Temp 97.8 F 06/25/24 11:07 Pulse 74 06/25/24 11:07 Resp 16 06/25/24 11:07 BP 138/94 H 06/25/24 11:07 Pulse Ox 97 06/25/24 11:07 O2 Del Method Room Air 06/25/24 11:07 Allergies Allergy/AdvReac Type Severity Reaction Status Date / Time No Known Allergies Allergy Verified 06/25/24 11:20 Home Medications ?Medication ?Instructions ?Recorded ?Confirmed ?Type cetirizine 10 mg tablet 10 mg PO PRN PRN allergy symptoms 06/03/23 06/18/24 History scopolamine base 1 mg over 3 days 1 patch transdermal Q3D PRN SHIP 06/06/23 06/18/24 History transdermal patch TRAVEL/NAUSEA PREVENTION diclofenac sodium 75 mg 75 mg PO BID PRN pain #180 tabs 04/30/24 06/25/24 Rx tablet,delayed release finasteride 5 mg tablet 5 mg PO DAILY #90 tabs 04/30/24 06/25/24 Rx losartan 50 mg tablet 50 mg PO DAILY #90 tabs 04/30/24 06/25/24 Rx pantoprazole 40 mg tablet,delayed 40 mg PO QAM #90 tabs 04/30/24 06/25/24 Rx release Patient hx anesthesia problems: none Family hx anesthesia problems: none Results Review: All pre-operative results and documents have been reviewed as part of the pre-operative evaluation. [facility] Past Medical History Medical History Chronic GERD Cancer of overlapping sites of bladder Bladder cancer IFG (impaired fasting glucose) GERD (gastroesophageal reflux disease) Surgical History Surgical History Adams's neuroma Family History Family History Father Family history of diabetes mellitus in first degree relative Other Diabetes mellitus Family history of arthritis Family history of malignant neoplasm Family history of seizure disorder Social History Social History Social History: Smoking packs per day: 1 Smoking cigarettes per day: 20.0 Years smoked: 3 Smoking pack-years: 3.00 Smoking status: Former smoker Tobacco type: cigarettes Second hand tobacco smoke exposure: No Smoking end date: 03/11/76 Alcohol intake: current Drinks per week: 9 Alcohol use details: BEER Substance use: never Substance use type: does not use Do You Feel Safe in your Home?: Yes Lack of Transportation: No Lack of Food: Never True Current Housing: I Have Housing Concerned About Future Housing: No Difficulty Paying Gas/Electric Bills: No Difficulty Paying for Meds: No Currently Unemployed: YES Education: Don't Know Difficulty w/ Childcare or Family Care: No Living arrangements: with family Occupation/Education: retired Gender identity (if verbalized by the patient): Male Sexual Orientation (if Verbalized by the Patient): Straight or Heterosexual Spiritual care concerns: No Anes - Eval Final PreProcedure Day of Procedure 06/25/24 13:02 Patient weight: normal Heart: regular rate and rhythm Lungs: clear to auscultation Airway: Mallampati scale class II Neurological: alert and oriented Last oral intake: >/= 8 hours ASA classification: III Emergent: no Anesthetic plan: proceed Anesthesia type and monitoring: general LMA and standard monitoring Results Review: All pre-operative results and documents have been reviewed as part of the pre-operative evaluation. Informed Consent: The patient's anesthetic plan and its attendant risks and benefits were discussed with the patient/family/POA. Questions were solicited and answers provided to the satisfaction of the patient/family/POA.
[2024-06-25] MEDS: ceFAZolin 2 GM/D5W 50 ML 2 GM/50 ML BAG IVPB (13:07)
[2024-06-25] MEDS: LIDOCAINE 2% GEL UROJET 10 ML PKG MUCOUS MEM (13:18)
[2024-06-25] MEDS: SODIUM CHLORIDE 0.9% IV 23.7 ML, GEMCITABINE HCL 1,000 MG BLADDER ×2 (13:59→14:00)
--- NOTE | 2024-06-25 14:09 | W.PM.PROC2 ---
Procedure Note - Detailed Date of Procedure 06/25/24 Pre-op Diagnosis Recurrent bladder CA Post-op Diagnosis Same Procedure Performed TURBT (medium, 3 cm) Surgeon Rodney Go MD Anesthesia General Description of Procedure Patient is brought to the operative suite where he has prepped draped in routine sterile fashion while in dorsal lithotomy position. 2% xylocaine jelly was introduced intraurethrally and general LMA anesthetic as administered per the anesthesia department. Twenty-four F resectoscope was placed in his bladder. I very carefully inspected his bladder. For the most part is normal except for this unusual flat patch of papillary changes in the right lateral wall at the 9 o'clock position near the bladder neck. This area was resected with a attempt made to include detrusor muscle for pathological evaluation of invasion. The resectoscope was removed after evacuating all chips and patient is taken to the recovery room in good condition Drains No Pathology None sent Complications No immediate complications Condition Stable Disposition PACU
--- NOTE | 2024-06-25 14:16 | W.PM.PROC2 ---
Procedure Note - Detailed Date of Procedure 06/25/24 Pre-op Diagnosis Bladder CA Post-op Diagnosis Same Procedure Performed Gemcitabine installation Surgeon Rodney Go MD Anesthesia General Description of Procedure With the patient in the supine position, a 16F Nance catheter is placed using sterile technique. Using a protective facemask, gown and double layer of gloves Gemcitabine 2gm in 100cc saline is administered through the catheter/into the bladder. The catheter is then plugged. Patient was instructed to lie supine x20min, then to roll both the left and right x20 min. each. Total dwell time will be 60 min., after which the bladder will be drained and catheter removed. Drains No Packing No
[2024-06-25] MEDS: fentaNYL CITRATE INJ (*CRX) 100 MCG/2 ML VIAL 25 MCG IV PUSH (14:27)
--- NOTE | 2024-06-25 15:45 | SUR.PHASEII ---
Pt voided 200mL of clear, pink urine.
== END 2024-06-25 16:16 | disposition home or self-care (01) ==
PROVIDERS: PCP Family Medicine; Visit Provider Urology
PROC: 0TBB8ZZ Excision of Bladder, Via Natural or Artificial Opening Endoscopic (ICD-10-PCS; CPT 52235; principal; 2024-06-25 13:00)
DX: N30.20 Other chronic cystitis without hematuria (principal); Z85.51 Personal history of malignant neoplasm of bladder; Z87.891 Personal history of nicotine dependence
CPT/HCPCS: 52235; 51720; 88305; 88342; J0690; J1100; J2003; J2371; J2405; J2704; J3010; J7120; J9201

== ENCOUNTER 2025-01-07 13:21 | Emergency (ER) | payer MEDICARE, OTHER, SELFPAY ==
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
[2025-01-07 13:38] VITALS: BP 139/88; PULSE 85; RESP 18; TEMP 36.9; O2SAT 97
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
[2025-01-07] MEDS: TETANUS/DIPHTHERIA TOXOIDS ADSORB 0.5 ML SYRINGE (*BKC) IM (14:54)
== END 2025-01-07 15:14 | disposition home or self-care (01) ==
PROVIDERS: Emergency Provider Nurse Practitioner; PCP Family Medicine
DX: S60.032A Contusion of left middle finger without damage to nail, initial encounter (principal); W33.01XA Accidental discharge of shotgun, initial encounter; Z23 Encounter for immunization; K21.9 Gastro-esophageal reflux disease without esophagitis; R73.01 Impaired fasting glucose; Z85.51 Personal history of malignant neoplasm of bladder; Z87.891 Personal history of nicotine dependence
CPT/HCPCS: 73140; 90471; 90714; 99213; G0463